=== PATIENT | male | born 1945 | race Caucasian/White ===

== ENCOUNTER → 2019-03-17 08:59 | Outpatient (BNVA) | payer MEDICARE, SELFPAY | PROVIDERS: Family Provider Nurse Practitioner; PCP Nurse Practitioner; Visit Provider Nurse Practitioner | DX: E11.9 Type 2 diabetes mellitus without complications (principal); E78.5 Hyperlipidemia, unspecified | CPT/HCPCS: 80053; 80061; 83036 ==

== ENCOUNTER → 2019-06-22 08:43 | Outpatient (BNVA) | payer MEDICARE, SELFPAY | PROVIDERS: Family Provider Nurse Practitioner; PCP Nurse Practitioner; Visit Provider Nurse Practitioner | DX: E11.65 Type 2 diabetes mellitus with hyperglycemia (principal); Z79.4 Long term (current) use of insulin; I10 Essential (primary) hypertension; E78.5 Hyperlipidemia, unspecified | CPT/HCPCS: 80053; 80061; 83036 ==

== ENCOUNTER → 2019-09-20 08:54 | Outpatient (BNVA) | payer MEDICARE, SELFPAY | PROVIDERS: Family Provider Nurse Practitioner; PCP Nurse Practitioner; Visit Provider Nurse Practitioner | DX: E11.65 Type 2 diabetes mellitus with hyperglycemia (principal); Z79.4 Long term (current) use of insulin; E78.2 Mixed hyperlipidemia; I10 Essential (primary) hypertension | CPT/HCPCS: 80053; 80061; 83036 ==

== ENCOUNTER → 2020-01-02 08:07 | Outpatient (BNVA) | payer MEDICARE, SELFPAY | PROVIDERS: Family Provider Nurse Practitioner; PCP Nurse Practitioner; Visit Provider Nurse Practitioner | DX: E11.65 Type 2 diabetes mellitus with hyperglycemia (principal); E78.2 Mixed hyperlipidemia; I10 Essential (primary) hypertension; Z79.4 Long term (current) use of insulin | CPT/HCPCS: 80053; 80061; 83036 ==

== ENCOUNTER → 2020-04-11 08:42 | Outpatient (BNVA) | payer MEDICARE, SELFPAY | PROVIDERS: Family Provider Nurse Practitioner; PCP Nurse Practitioner; Visit Provider Nurse Practitioner | DX: E11.65 Type 2 diabetes mellitus with hyperglycemia (principal); E78.2 Mixed hyperlipidemia; Z79.4 Long term (current) use of insulin; I10 Essential (primary) hypertension | CPT/HCPCS: 80053; 80061; 83036 ==

== ENCOUNTER → 2020-07-03 08:32 | Outpatient (BNVA) | payer MEDICARE, SELFPAY | PROVIDERS: Family Provider Nurse Practitioner; PCP Nurse Practitioner; Visit Provider Nurse Practitioner | DX: E11.65 Type 2 diabetes mellitus with hyperglycemia (principal); E78.2 Mixed hyperlipidemia; I10 Essential (primary) hypertension; Z79.4 Long term (current) use of insulin | CPT/HCPCS: 80053; 80061; 83036 ==

== ENCOUNTER → 2020-10-25 10:01 | Outpatient (BNVA) | payer MEDICARE, SELFPAY | PROVIDERS: Family Provider Nurse Practitioner; PCP Nurse Practitioner; Visit Provider Nurse Practitioner | DX: E11.65 Type 2 diabetes mellitus with hyperglycemia (principal); Z79.4 Long term (current) use of insulin; I10 Essential (primary) hypertension | CPT/HCPCS: 80053; 80061; 83036 ==

== ENCOUNTER → 2021-05-30 08:54 | Outpatient (BNVA) | payer MEDICARE, SELFPAY | PROVIDERS: Family Provider Nurse Practitioner; PCP Nurse Practitioner; Visit Provider Nurse Practitioner | DX: E11.65 Type 2 diabetes mellitus with hyperglycemia (principal); I10 Essential (primary) hypertension; Z79.4 Long term (current) use of insulin | CPT/HCPCS: 80053; 80061; 83036 ==

== ENCOUNTER → 2022-08-04 08:44 | Outpatient (BNVA) | payer MEDICARE, SELFPAY | PROVIDERS: Family Provider Nurse Practitioner; PCP Nurse Practitioner; Visit Provider Nurse Practitioner Family | DX: J40 Bronchitis, not specified as acute or chronic (principal); J98.8 Other specified respiratory disorders | CPT/HCPCS: 87400; 87426 ==

== ENCOUNTER → 2022-08-15 11:45 | Outpatient (BNVA) | payer MEDICARE, SELFPAY | PROVIDERS: Family Provider Nurse Practitioner; PCP Nurse Practitioner; Visit Provider Nurse Practitioner Family | DX: R05.9 Cough, unspecified (principal) | CPT/HCPCS: 71046 ==

== ENCOUNTER → 2022-08-26 09:35 | Outpatient (BNVA) | payer MEDICARE, SELFPAY | PROVIDERS: Family Provider Nurse Practitioner; PCP Nurse Practitioner; Visit Provider Nurse Practitioner Family | DX: E11.65 Type 2 diabetes mellitus with hyperglycemia (principal); Z79.4 Long term (current) use of insulin; E78.5 Hyperlipidemia, unspecified; I10 Essential (primary) hypertension | CPT/HCPCS: 80053; 80061; 82043; 83036; 84443; 85025; G0103 ==

== ENCOUNTER 2022-10-21 23:57 | Emergency (ER) | payer MEDICARE, SELFPAY ==
[2022-10-22] VITALS: BP 136/88; PULSE 109; RESP 14; TEMP 36.7; O2SAT 92; BMI 28.5
--- NOTE | 2022-10-22 00:14 | W.ED.MALEGU ---
HPI - Male Genitourinary General: Chief complaint: Urogenital-Male Stated complaint: [place] Time Seen by Provider: 10/22/22 00:06 History of Present Illness: 77-year-old male patient comes in today for complaints of difficulty urinating. Patient reports he had noticed that he had not urinated all day until about 6:00. Since then patient has tried to urinate several times without any production of urine. Patient appears nontoxic. Patient appears no acute distress. Patient does feel like his abdomen is more bloated now. Patient has a history of BPH, diabetes, takes a routine blood thinner, and atrial fibs. Review of Systems General: Reports: 10 or more systems reviewed and unremarkable except in HPI and below : Reports: difficulty urinating PFS ED PFSH: Medical History (Updated 10/22/22 @ 01:18 by DIANN Hitchcock) BPH without urinary obstruction Controlled diabetes mellitus with hyperglycemia, with long-term current use of insulin Hyperlipidemia Hypertension Lumbar back pain with radiculopathy affecting lower extremity Paroxysmal atrial fibrillation Surgical History History of bilateral inguinal hernia repair age 22 History of colonoscopy 2011 History of hernia repair 2012 umbilici Status post repair of hydrocele Family History Brother Diabetes Mother Diabetes Cancer stomach Grandmother Diabetes Social History Smoking and tobacco status: former smoker Second hand smoke exposure: No Smoking risk assessment/counseling performed?: No Alcohol intake: never Desire information about alcohol rehabilitation?: No Counseling given: No Substance/Drug Use: never Desire information about substance/drug rehabilitation?: No Counseling given: No Adopted: No Caregiver/support person: No Lives independently: Yes Household members: spouse Housing: House Marital status: / Number of children: 3 Current occupational status: retired Do you think of yourself as: Straight/Heterosexual Current gender identity: Male Physical Exam Const: COMMON NORMALS: alert HENMT: COMMON NORMALS: normocephalic HEAD & SCALP: normocephalic Neck/C-Spine: COMMON NORMALS: full ROM Resp: COMMON NORMALS: normal respiratory effort Cardio: COMMON NORMALS: regular rate and regular rhythm RATE: regular rate RHYTHM: regular rhythm GI: COMMON NORMALS: Soft to palpation and non-tender PALPATION: Yes Soft to palpation Back/Pelvis: COMMON NORMALS: thoracic and lumbar spine normal to inspection Extremity: COMMON NORMALS: no pedal edema Neuro: SENSORIUM/ORIENTATION: Yes alert Skin: COMMON NORMALS: turgor normal GENERAL SKIN EXAM: turgor normal Course Vital Signs: Vital signs: Vital Signs Temperature 98.1 F 10/22/22 00:00 Pulse Rate 109 H 10/22/22 00:00 Respiratory Rate 14 10/22/22 00:00 Blood Pressure 136/88 10/22/22 00:00 Pulse Oximetry 92 10/22/22 00:00 Oxygen Delivery Me thod Room Air 10/22/22 00:00 MDM - Male Medical Decision Making 77-year-old male patient comes in [facility] for complaints of difficulty urinating. Patient believes he had not urinated since this morning and could not do it at home. On exam patient appears nontoxic. Abdomen is soft with no tenderness. No CVA tenderness. Lungs are clear to auscultation. Vital signs are normal. Differential diagnosis includes but not limited to urinary tract infection, urinary retention, BPH. Bladder scan only noted about 120 mL. Urine for straight cath was performed and urine was sent to lab which showed no signs of infection. CBC and BMP were normal. Recommend patient continue with routine care and follow-up with primary care for further evaluation and treatment as needed. Patient stated understanding and agreed to plan. Lab Data 10/22/22 00:37 10/22/22 00:37 Laboratory Results WBC 8.41 10^3/uL (3.29-11.43) 10/22/22 00:37 RBC 4.37 10^6/uL (3.85-5.65) 10/22/22 00:37 Hgb 13.60 g/dL (11.27-16.99) 10/22/22 00:37 Hct 41.9 % (37-53) 10/22/22 00:37 MCV 95.9 fl (82-101) 10/22/22 00:37 MCH 31.1 pg (27-33) 10/22/22 00:37 MCHC 32.5 g/dL (30-55) 10/22/22 00:37 RDW 14.0 % (12.1-15.1) 10/22/22 00:37 Plt Count 255 10^3/cmm (157-399) 10/22/22 00:37 MPV 9.7 fL (7.4-10.4) 10/22/22 00:37 Neut % (Auto) 70.4 % 10/22/22 00:37 Lymph % (Auto) 15.9 % 10/22/22 00:37 [place] % (Auto) 7.5 % 10/22/22 00:37 Eos % (Auto) 4.4 % 10/22/22 00:37 Baso % (Auto) 1.3 % 10/22/22 00:37 Neut # (Auto) 5.92 10^3/uL (1.8-7.7) 10/22/22 00:37 Lymph # (Auto) 1.3 10^3/uL (0.8-4.8) 10/22/22 00:37 [place] # (Auto) 0.6 10^3/uL (0.2-0.9) 10/22/22 00:37 Eos # (Auto) 0.4 10^3/uL (0.0-0.8) 10/22/22 00:37 Baso # (Auto) 0.1 10^3/uL (0.0-0.1) 10/22/22 00:37 Nucleated RBC % (auto) 0 % 10/22/22 00:37 Nucleated RBCs # 0.0 /100WBC 10/22/22 00:37 Sodium 137 mmol/L (136-145) 10/22/22 00:37 Potassium 4.1 mmol/L (3.5-5.1) 10/22/22 00:37 Chloride 100 mmol/L (98-107) 10/22/22 00:37 Carbon Dioxide 27 mmol/L (22-29) 10/22/22 00:37 Anion Gap 14.1 (5-19) 10/22/22 00:37 BUN 14 mg/dL (8-23) 10/22/22 00:37 Creatinine 0.9 mg/dL (0.7-1.2) 10/22/22 00:37 GFR Calculation Not Reportable 10/22/22 00:37 Calculated Osmolality 291 mOsm/kg (285-295) 10/22/22 00:37 Calcium 9.2 mg/dL (8.5-10.5) 10/22/22 00:37 Urine Color Yellow (Yellow) 10/22/22 00:32 Urine Appearance Clear (CLEAR) 10/22/22 00:32 Urine pH 5 (5-7) 10/22/22 00:32 Ur Specific [place] 1.025 (1.005-1.030) 10/22/22 00:32 Urine Protein Neg (Negative) 10/22/22 00:32 Urine Glucose (UA) Norm (Normal) 10/22/22 00:32 Urine Ketones Negative (Negative) 10/22/22 00:32 Urine Blood Neg (Negative) 10/22/22 00:32 Urine Nitrate Negative (Negative) 10/22/22 00:32 Urine Bilirubin Neg (Negative) 10/22/22 00:32 Urine Urobilinogen Neg mg/dL (Negative) 10/22/22 00:32 Ur Leukocyte Esterase Negative (Negative) 10/22/22 00:32 Discharge Plan Discharge Patient Disposition: Home Clinical Impression: BPH without urinary obstruction Condition: Stable Prescriptions: No Action Victoza 3-Leonid 0.6 mg/0.1 mL (18 mg/3 mL) pen injector See Rx Instructions SUBCUT DAILY Qty: 27 1RF Rx Instructions: 0.6mg daily for a week then go to 1.2mg daily for a week (DME) OneTouch Ultra Test Strip See Rx Instructions .Route Qty: 100 5RF Rx Instructions: use 3 times day metoprolol succinate 25 mg tablet extended release 24 hr 25 mg PO .at bedtime Qty: 90 1RF lisinopril 5 mg tablet 5 mg PO DAILY Qty: 90 1RF pravastatin 40 mg tablet 40 mg PO DAILY Qty: 90 1RF Xarelto 20 mg tablet 20 mg PO .hs Qty: 90 1RF tamsulosin [Flomax] 0.4 mg capsule 0.4 mg PO .2 times day Qty: 180 1RF finasteride [Proscar] 5 mg tablet 5 mg PO DAILY Qty: 90 1RF gabapentin 400 mg capsule 400 mg PO BID Qty: 180 1RF (DME) lancets [OneTouch Delica Plus Lancet] 33 gauge misc See Rx Instructions .ROUTE .MEDSUPPLY Qty: 100 5RF Rx Instructions: 3 times a day (DME) blood-glucose meter [[employer] Ultra2 Meter] Kit See Rx Instructions .ROUTE .MEDSUPPLY Qty: 1 0RF Rx Instructions: daily Levemir FlexTouch U100 Insulin 100 unit/mL (3 mL) insulin pen See Rx Instructions SUBCUT BID Qty: 30 2RF Rx Instructions: 25 units subcutaneously twice a day; Discharge Orders: Discharge ED (Routine); Ordered 10/22/22 Ordered By: Misha Duggan Referrals: Shanita Heart FNP [Primary Care Provider] - Discharge Diet: Usual diet Discharge Activity: Increase activity as tolerated Patient Instructions: Enlarged Prostate (BPH) (ED) Activity Restrictions/Additional Instructions: Plenty of fluids. Continue with routine care. Follow-up with primary care's office for further evaluation and treatment. Return to ER for new concerns or worsening symptoms such as high fever, severe abdominal pain, blood in vomit stool or urine. 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
[2022-10-22 00:39] LABS: Add Urine Microscopic? NO; Charge for UA Resulting for Rev
[2022-10-22 00:42] LABS: Basophils # 0.1 10^3/uL (0.0-0.1); Basophils % 1.3 %; Eosinophils # 0.4 10^3/uL (0.0-0.8); Eosinophils % 4.4 %; Hematocrit 41.9 % (37-53); Lymphocytes # 1.3 10^3/uL (0.8-4.8); Lymphocytes % 15.9 %; Mean Corpuscular HGB Conc 32.5 g/dL (30-55); Mean Corpuscular Hemoglobin 31.1 pg (27-33); Mean Corpuscular Volume 95.9 fl (82-101); Mean Platelet Volume 9.7 fL (7.4-10.4); Monocytes # 0.6 10^3/uL (0.2-0.9); Monocytes % 7.5 %; Neutrophils # 5.92 10^3/uL (1.8-7.7); Neutrophils % 70.4 %; Nucleated Red Blood Cells % 0 %; Platelet Count 255 10^3/cmm (157-399); Red Blood Count 4.37 10^6/uL (3.85-5.65); White Blood Count 8.41 10^3/uL (3.29-11.43)
--- NOTE | 2022-10-22 00:42 | PC.NURSE ---
Per Olga Lidia, instructed to hold off on placing urinary catheter and leg bag until otherwise specified. Was instructed to straight cath.
[2022-10-22 00:50] LABS: Bilirubin Urine Neg (Negative); Blood Urine Neg (Negative); Glucose Urine UA Norm (Normal); Ketones Urine Negative (Negative); Leukocyte Esterase Urine Negative (Negative); Nitrate Urine Negative (Negative); Protein Urine Neg (Negative); Specific Gravity, Urine 1.025 (1.005-1.030); Urine Appearance Clear (CLEAR); Urine Color Yellow (Yellow); Urobilinogen Urine Neg (Negative); pH Urine 5 (5-7)
[2022-10-22 01:10] LABS: Anion Gap 14.1 (5-19); Blood Urea Nitrogen 14 mg/dL (8-23); Calcium 9.2 mg/dL (8.5-10.5); Carbon Dioxide 27 mmol/L (22-29); Chloride 100 mmol/L (98-107); Glucose 213 mg/dL (65-115); Osmolality Calculated 291 mOsm/kg (285-295); Potassium 4.1 mmol/L (3.5-5.1); Sodium 137 mmol/L (136-145)
[2022-10-22 01:21] VITALS: BP 122/67; PULSE 87; RESP 16; O2SAT 95
== END 2022-10-22 01:25 | disposition home or self-care (01) ==
PROVIDERS: Emergency Provider Nurse Practitioner Family; PCP Nurse Practitioner Family
DX: N40.0 Benign prostatic hyperplasia without lower urinary tract symptoms (principal); Z79.4 Long term (current) use of insulin; E11.9 Type 2 diabetes mellitus without complications; E78.5 Hyperlipidemia, unspecified; I10 Essential (primary) hypertension; Z87.891 Personal history of nicotine dependence
CPT/HCPCS: 36415; 51798; 80048; 81003; 85025; 99283

== ENCOUNTER → 2022-11-10 08:35 | Outpatient (BNVA) | payer MEDICARE, SELFPAY | PROVIDERS: PCP Nurse Practitioner Family; Visit Provider Nurse Practitioner Family | DX: J06.9 Acute upper respiratory infection, unspecified (principal); Z20.822 Contact with and (suspected) exposure to COVID-19 | CPT/HCPCS: 87400; 87426 ==

== ENCOUNTER → 2022-12-16 08:50 | Outpatient (BNVA) | payer MEDICARE, SELFPAY | PROVIDERS: PCP Nurse Practitioner Family; Visit Provider Nurse Practitioner Family | DX: E11.65 Type 2 diabetes mellitus with hyperglycemia (principal); Z79.4 Long term (current) use of insulin; I10 Essential (primary) hypertension; E78.5 Hyperlipidemia, unspecified | CPT/HCPCS: 80053; 80061; 83036; 85025 ==

== ENCOUNTER → 2023-03-30 09:13 | Outpatient (BNVA) | payer MEDICARE, SELFPAY | PROVIDERS: PCP Nurse Practitioner Family; Visit Provider Nurse Practitioner Family | DX: Z79.4 Long term (current) use of insulin (principal); E11.65 Type 2 diabetes mellitus with hyperglycemia; I10 Essential (primary) hypertension; E78.2 Mixed hyperlipidemia | CPT/HCPCS: 80053; 80061; 83036; 85025 ==

== ENCOUNTER → 2023-06-29 08:58 | Outpatient (BNVA) | payer MEDICARE, SELFPAY | PROVIDERS: PCP Nurse Practitioner Family; Visit Provider Nurse Practitioner Family | DX: E11.65 Type 2 diabetes mellitus with hyperglycemia (principal); Z79.4 Long term (current) use of insulin | CPT/HCPCS: 80053; 80061; 83036; 85025 ==

== ENCOUNTER 2023-09-24 06:00 | Outpatient (RCR) | payer MEDICARE, SELFPAY | END 2023-10-17 23:59 | disposition home or self-care (01) | LOC: TPT 06:00 | PROVIDERS: PCP Nurse Practitioner Family; Visit Provider Nurse Practitioner Family | DX: M25.551 Pain in right hip (principal) | CPT/HCPCS: 97110; 97162 ==

== ENCOUNTER → 2023-09-28 08:46 | Outpatient (BNVA) | payer MEDICARE, SELFPAY | PROVIDERS: PCP Nurse Practitioner Family; Visit Provider Nurse Practitioner Family | DX: E11.65 Type 2 diabetes mellitus with hyperglycemia (principal); Z79.4 Long term (current) use of insulin | CPT/HCPCS: 80053; 80061; 83036; 85025 ==

== ENCOUNTER 2023-10-18 06:30 | Outpatient (RCR) | payer MEDICARE, SELFPAY | END 2023-11-16 23:59 | disposition home or self-care (01) | LOC: TPT 06:30 | PROVIDERS: PCP Nurse Practitioner Family; Visit Provider Nurse Practitioner Family | DX: M25.551 Pain in right hip (principal) | CPT/HCPCS: 97110 ==

== ENCOUNTER 2023-11-17 06:00 | Outpatient (RCR) | payer MEDICARE, SELFPAY | END 2023-12-17 23:59 | disposition home or self-care (01) | LOC: TPT 06:00 | PROVIDERS: PCP Nurse Practitioner Family; Visit Provider Nurse Practitioner Family | DX: M25.551 Pain in right hip (principal) | CPT/HCPCS: 97110 ==

== ENCOUNTER → 2024-07-22 10:12 | Outpatient (BNVA) | payer MEDICARE, SELFPAY | PROVIDERS: PCP Nurse Practitioner Family; Visit Provider Nurse Practitioner Family | DX: Z12.5 Encounter for screening for malignant neoplasm of prostate (principal); E11.65 Type 2 diabetes mellitus with hyperglycemia; Z79.4 Long term (current) use of insulin; Z79.899 Other long term (current) drug therapy | CPT/HCPCS: 80053; 80061; 82306; 83036; 84443; 85025; G0103 ==

== ENCOUNTER → 2024-12-15 11:17 | Outpatient (BNVA) | payer MEDICARE, SELFPAY | PROVIDERS: PCP Nurse Practitioner Family; Visit Provider Nurse Practitioner Family | DX: E11.65 Type 2 diabetes mellitus with hyperglycemia (principal); Z79.4 Long term (current) use of insulin; I10 Essential (primary) hypertension; Z79.899 Other long term (current) drug therapy | CPT/HCPCS: 80053; 80061; 82043; 82306; 83036; 85025 ==

== ENCOUNTER → 2024-12-19 09:10 | Outpatient (BNVA) | payer MEDICARE, SELFPAY | PROVIDERS: PCP Nurse Practitioner Family; Visit Provider Nurse Practitioner Family | DX: R30.0 Dysuria (principal) | CPT/HCPCS: 81000; 87086 ==